=== PATIENT | male | born 1985 | race Caucasian/White ===

== ENCOUNTER 2020-10-23 05:08 | Emergency (ER) | payer MEDICAID ==
[~2020-10-23] VITALS: Ht 182.9 cm; Wt 86.2 kg
[2020-10-23 05:16] VITALS: BP 126/83; Ht 182.9 cm; Wt 86.2 kg
[2020-10-23] MEDS ORDERED: HYDROCODON-ACE1 EAC7 PO (05:28)
[2020-10-23] MEDS ORDERED: COLACE100 MG PO (05:28)
== END 2020-10-23 05:48 | disposition home or self-care (01) ==
LOC: D.ER 05:08
DX: K64.4 Residual hemorrhoidal skin tags (principal); R10.9 Unspecified abdominal pain